=== PATIENT | male | born 2000 | race Caucasian/White ===

== ENCOUNTER 2023-03-27 19:35 | Emergency (ER) | payer OTHER, BC, SELFPAY ==
[2023-03-27 19:48] VITALS: BP 112/65; PULSE 83; RESP 20; TEMP 36.8; O2SAT 91
[2023-03-27 23:26] VITALS: O2SAT 94
[2023-03-27 23:30] VITALS: O2SAT 92
[2023-03-27 23:31] VITALS: BP 117/70; O2SAT 94
[2023-03-27 23:49] VITALS: O2SAT 94
--- NOTE | 2023-03-27 23:54 | ED.HA ---
HPI - Headache General Chief Complaint: Headache Stated Complaint: headache Time Seen by Provider: 03/27/23 23:37 History of Present Illness HPI Narrative: 22-year-old male here for evaluation of headache x4 days. Patient states the pain came on gradually and is present around his left church. It is described as a throbbing and occasionally stabbing sensation. Associated with photophobia. No nausea, vomiting, visual changes, neck stiffness, fevers or chills. History of headaches, typically resolved after Excedrin. Patient states that he has been taking Excedrin without relief of his migraine which prompted his ED eval. no head trauma. Related Data Allergies Allergy/AdvReac Type Severity Reaction Status Date / Time No Known Allergies Allergy Unverified 03/27/23 19:59 Review of Systems Review of Systems: Gen.: Denies fevers or chills Eyes: Denies eye pain or visual change ENT: Denies congestion Respiratory: Denies shortness of breath or cough CV: Denies chest pain or palpitations GI: Denies abdominal pain nausea, emesis or diarrhea denies burning, urgency, frequency or hematuria Musculoskeletal: Denies back pain or muscle pain Neuro: Reports headache. Denies numbness, tingling, weakness or focal weakness Skin: Denies rash Except as documented, all other systems reviewed and negative Exam Narrative: APPEARANCE: No acute distress, nontoxic, resting in bed EYES: EOMI, pupils are equal round and reactive to light. HEENT: Normocephalic, atraumatic, OMM RESPIRATORY: No respiratory distress Clear to auscultation bilaterally with no rhonchi wheezing or rales. CARDIOVASCULAR: Regular rate and rhythm without murmurs rubs or gallops. ABDOMINAL: Soft, nontender, nondistended, no rebound or guarding MUSCULOSKELETAl: No nuchal rigidity. Moves all extremities. No clubbing, cyanosis or edema. NEURO: Awake and alert. Following commands, speech normal, no focal deficits SKIN:: Warm, dry. No rashes lesions or abrasions PSYCHIATRIC: Normal affect/mood, Course Vital Signs Vital signs: Vital Signs Temperature 98.2 F 03/27/23 19:48 Pulse Rate 83 03/27/23 19:48 Respiratory Rate 20 03/27/23 19:48 Blood Pressure 112/65 03/27/23 19:48 Pulse Oximetry 91 03/27/23 19:48 Oxygen Delivery Room Air 03/27/23 19:48 Temperature 98.2 F 03/27/23 19:48 Pulse Rate 83 03/27/23 19:48 Respiratory Rate 20 03/27/23 19:48 Blood Pressure 121/78 03/28/23 00:01 Pulse Oximetry 95 03/28/23 00:01 Oxygen Delivery Room Air 03/27/23 19:48 MDM - Headache MDM Narrative Medical decision making narrative: 22-year-old male here for evaluation of migraine headache over the past several days. He is nontoxic in appearance and has normal vital signs. This patient presents with a headache most consistent with benign headache from either tension type headache vs migraine. No headache red flags. Neurologic exam without evidence of meningismus, AMS, focal neurologic findings so doubt meningitis, encephalitis, stroke. Presentation not consistent with acute intracranial bleed to include SAH (lack of risk factors, headache history). No history of trauma so doubt ICH. Given history and physical temporal arteritis unlikely, as is acute angle closure glaucoma. Doubt carotid artery dissection given no focal neuro deficits, no neck trauma or recent neck strain. Patient with no signs of increased intracranial pressure or weight loss and history and physical suggest more benign headache so less likely mass effect in brain from tumor or abscess or idiopathic intracranial hypertension. Pain was controlled with headache cocktail and patient discharged home with PMD follow up. Discharge Plan Discharge Clinical Impression: Migraine Patient Disposition: Home, Self-Care Condition: Stable Instructions: Antibiotic Form, Migraine Headache (ED) Additional Instructions: Your symptoms today are likely due to migraine. Please follow
[2023-03-28] VITALS: O2SAT 94
[2023-03-28 00:01] VITALS: BP 121/78; O2SAT 95
[2023-03-28] MEDS: SODIUM CHLORIDE 0.9% IV 1,000 ML 999 ML IV CONT (00:27)
[2023-03-28] MEDS: diphenhydrAMINE HCl INJ 50 MG/ML VIAL 25 MG IV PUSH (00:27)
[2023-03-28] MEDS: PROCHLORPERAZINE EDISYLATE 10 MG/2 ML VIAL IV PUSH (00:27)
== END 2023-03-28 01:29 | disposition home or self-care (01) ==
PROVIDERS: Emergency Provider Physician Assistant; PCP Nurse Practitioner Family
DX: G43.909 Migraine, unspecified, not intractable, without status migrainosus (principal)
CPT/HCPCS: 96361; 96374; 96375; 99284; J0780; J1200; J7030

== ENCOUNTER 2024-08-12 14:00 | Emergency (ER) | payer BC, SELFPAY ==
[2024-08-12 14:08] VITALS: BP 139/58; PULSE 81; RESP 20; TEMP 36.8; O2SAT 91
--- NOTE | 2024-08-12 14:23 | ED.ABDPAIN ---
HPI - Abdominal Pain General Chief Complaint: Back Pain/Injury Stated Complaint: Left Side Flank Pain Time Seen by Provider: 08/12/24 14:37 Source: patient, RN notes reviewed and old records reviewed Mode of arrival: ambulatory Limitations: no limitations History of Present Illness HPI narrative: Patient presents with complaints of left-sided rib pain that has been present since yesterday. He denies any injury or trauma. He denies any cough. He reports pain is worse with deep breathing and twisting of the torso. He took Tylenol yesterday 1 time with moderate relief. He has not taken anything for his symptoms today. Denies any shortness of breath. He is in no distress at this time. He voices no other concerns or complaints Related Data Home Medications Medication Instructions Recorded Confirmed lisinopril 10 mg tablet 10 mg PO DAILY 08/12/24 08/12/24 Allergies Allergy/AdvReac Type Severity Reaction Status Date / Time No Known Allergies Allergy Verified 08/12/24 14:16 Review of Systems Review of Systems: All systems reviewed & are unremarkable except as noted in HPI and below Constitutional: Constitutional: Reports no additional constitutional complaints ENT: Reports system reviewed and no additional complaints, except as documented Cardiovascular: Cardiovascular: Reports no additional cardiovascular complaints Respiratory: Respiratory: Reports no additional respiratory complaints Gastrointestinal: Gastrointestinal: Reports no additional gastrointestinal complaints Musculoskeletal: Musculoskeletal: Reports no additional musculoskeletal complaints and Reports as per [facility] PMF Comments At the time of my signature, I reviewed and agree with the nursing past medical, surgical, social, and family history. There is no relevant family history pertinent to the patient complaint. Exam Const: General: cooperative, no acute distress, alert and awake Orientation/consciousness: oriented to person, oriented to place and oriented to time HENMT: Head: normal to inspection Chest: Chest palpation & inspection: localized rib tenderness with anteroposterior compression left mid-scapular line involving the 11th rib Resp: Effort & Inspection: normal respiratory effort and able to speak in complete sentences Auscultation: clear to auscultation bilaterally, no crackles, no rales, no rhonchi and no wheezes Cardio: Palpation: normal PMI Rate: regular rate Rhythm: regular rhythm Heart sounds: S1 normal heart sound present and S2 normal heart sound present Neuro: General: oriented to person, oriented to place and oriented to time Cranial nerves: Yes CN's II-XII intact bilaterally Psych: Appearance: grossly normal Thought process: Normal thought process present Insight: Good insight present (Psych) Judgement: Good judgement present (Psych) Course Course Level of Care: Express Care Visit Vital Signs Vital signs: Vital Signs Temperature 98.3 F 08/12/24 14:08 Pulse Rate 81 08/12/24 14:08 Respiratory Rate 20 08/12/24 14:08 Blood Pressure 139/58 L 08/12/24 14:08 Pulse Oximetry 91 08/12/24 14:08 Oxygen Delivery Room Air 08/12/24 14:08 Temperature 98.3 F 08/12/24 14:08 Pulse Rate 81 08/12/24 14:08 Respiratory Rate 20 08/12/24 14:08 Blood Pressure 139/58 L 08/12/24 14:08 Pulse Oximetry 91 08/12/24 14:08 Oxygen Delivery Room Air 08/12/24 14:08 Reviewed MDM - Abdominal Pain MDM Narrative Medical decision making narrative: Exam consistent with costochondritis, patient has not been taking any NSAIDs. Will prescribed. Follow with primary care provider, emergency department for new or worse symptoms. Discharge instructions reviewed with patient, as well as provided in writing per nursing staff. The instructions also include specific and strict return/GO TO THE ER as well as f/u information. All questions have been answered, and the patient deny any further questions with d
== END 2024-08-12 14:50 | disposition home or self-care (01) ==
PROVIDERS: Emergency Provider Nurse Practitioner Family; PCP Nurse Practitioner Family
DX: M94.0 Chondrocostal junction syndrome [Tietze] (principal); I10 Essential (primary) hypertension; Q23.4 Hypoplastic left heart syndrome
CPT/HCPCS: 99213; G0463